=== PATIENT | male | born 1950 | race Caucasian/White ===

== ENCOUNTER 2022-12-05 18:15 | Emergency (ER) | payer MEDICARE, BC ==
[2022-12-05] MEDS ORDERED: Diphtheria,Pertussis(Acell),Tetanus Vaccine 0.5 ML Syringe IM ONE (18:44)
[2022-12-05] MEDS ORDERED: Take Home: Cephalexin 500 MG Cap, 6 Cap Pack PO ONE (19:01)
== END 2022-12-05 19:16 | disposition home or self-care (01) ==
LOC: VM.ED 18:15
DX: S90.456A Superficial foreign body, unspecified lesser toe(s), initial encounter (principal); W45.0XXA Nail entering through skin, initial encounter
CPT/HCPCS: 73660-T1; 90471; 90715; 99283; 99283-25; A9270-GY

== ENCOUNTER 2023-09-02 07:28 | Emergency (ER) | payer MEDICARE, BC ==
[2023-09-02] MEDS: Lidocaine 1% 10 ML MDV INJECT ONE (07:45)
== END 2023-09-02 08:23 | disposition home or self-care (01) ==
LOC: VM.ED 07:28
DX: M79.5 Residual foreign body in soft tissue (principal)
CPT/HCPCS: 64450; 99283-25; J3490